=== PATIENT | female | born 1955 | race Caucasian/White ===

== ENCOUNTER 2023-07-11 12:29 | Emergency (ER) | payer SELFPAY ==
[~2023-07-11] VITALS: Ht 160 cm; Wt 66.0 kg
[2023-07-11 12:41] VITALS: O2SAT 99
[2023-07-11] MEDS: ACETAMINOPHEN 325MG TABLET PO ONE (14:36)
[2023-07-11] MEDS: IBUPROFEN 400MG TABLET PO ONE (14:36)
[2023-07-11] MEDS ORDERED: IBUP-2028 MT (15:17)
[2023-07-11 15:46] VITALS: BP 144/87; PULSE 80; RESP 18; TEMP 98.5
== END 2023-07-11 15:47 | disposition home or self-care (01) ==
LOC: ER 12:29
DX: M79.605 Pain in left leg (principal); Z98.890 Other specified postprocedural states
CPT/HCPCS: 93971; 99284